=== PATIENT | female | born 1965 | race Two or more races ===

== ENCOUNTER 2018-02-24 07:28 | Outpatient (CLI) | payer OTHER | END 2018-02-24 07:36 | disposition home or self-care (01) | LOC: LAB 07:28 | DX: R73.01 Impaired fasting glucose (principal); E78.2 Mixed hyperlipidemia; D50.0 Iron deficiency anemia secondary to blood loss (chronic); E03.8 Other specified hypothyroidism; M81.0 Age-related osteoporosis without current pathological fracture; R30.0 Dysuria; Z12.11 Encounter for screening for malignant neoplasm of colon ==

== ENCOUNTER 2018-02-24 07:46 | Outpatient (CLI) | payer OTHER | END 2018-02-24 07:52 | disposition home or self-care (01) | LOC: MAMO-SONO 07:46 | DX: Z12.31 Encounter for screening mammogram for malignant neoplasm of breast (principal); N64.4 Mastodynia ==

== ENCOUNTER 2018-06-04 11:34 | Emergency (ER) | payer OTHER ==
[~2018-06-04] VITALS: Ht 167.6 cm; Wt 81.6 kg
[2018-06-04] MEDS ORDERED: PROTONIX40 MG PO (22:04)
[2018-06-04] MEDS ORDERED: MAALOX MAXIMUM355 ML PO (22:04)
[2018-06-04] MEDS ORDERED: ZANTAC300 MG PO (22:04)
[2018-06-04] MEDS ORDERED: ULTRACET PO (22:04)
[2018-06-04] MEDS ORDERED: METOCLOPRAMIDE10 M1 PO (22:04)
== END 2018-06-04 23:17 | disposition home or self-care (01) ==
LOC: ER 11:34
DX: K52.9 Noninfective gastroenteritis and colitis, unspecified (principal)

== ENCOUNTER 2018-06-24 09:04 | Outpatient (CLI) | payer OTHER ==
[~2018-06-24 09:04] MED LIST: MAALOX MAXIMUM355 ML PO; METOCLOPRAMIDE10 M1 PO; PROTONIX40 MG PO; ULTRACET PO; ZANTAC300 MG PO
== END 2018-06-24 11:57 | disposition home or self-care (01) ==
LOC: TOM 09:04
DX: R10.32 Left lower quadrant pain (principal)

== ENCOUNTER 2019-02-18 07:00 | Outpatient (CLI) | payer OTHER | END 2019-02-18 15:00 | disposition home or self-care (01) | LOC: LAB 07:00 | DX: Z00.00 Encounter for general adult medical examination without abnormal findings (principal) ==

== ENCOUNTER 2019-02-27 07:45 | Outpatient (CLI) | payer OTHER | END 2019-02-27 15:26 | disposition home or self-care (01) | LOC: LAB 07:45 | DX: N28.89 Other specified disorders of kidney and ureter (principal) ==

== ENCOUNTER 2020-06-19 08:46 | Outpatient (CLI) | payer OTHER | END 2020-06-19 08:57 | disposition home or self-care (01) | LOC: RAD 08:46 | DX: B39.9 Histoplasmosis, unspecified (principal) ==

== ENCOUNTER 2020-06-26 09:39 | Outpatient (CLI) | payer OTHER | END 2020-06-26 10:01 | disposition home or self-care (01) | LOC: TOM 09:39 | PROVIDERS: ATTEND Obstetrics & Gynecology | DX: J42 Unspecified chronic bronchitis (principal) ==

== ENCOUNTER 2023-01-13 17:59 | Emergency (ER) | payer OTHER ==
[~2023-01-13] VITALS: Ht 160 cm; Wt 70.8 kg
[2023-01-13] MEDS ORDERED: NEXIUM40 M1 (18:22)
[2023-01-13] MEDS ORDERED: PHENERGAN25 MG/1 ML (18:23)
[2023-01-13] MEDS ORDERED: LEVSIN/SL0.125 MG SL (22:33)
[2023-01-13] MEDS ORDERED: PEPCID AC20 MG PO (22:33)
[2023-01-13] MEDS ORDERED: ONDANSETRON ODT8 MG PO (22:33)
== END 2023-01-13 23:24 | disposition home or self-care (01) ==
LOC: ER 17:59
DX: K29.70 Gastritis, unspecified, without bleeding (principal)